=== PATIENT | female | born 1995 | race Two or more races ===

== ENCOUNTER 2020-08-16 22:54 | Emergency (ER) | payer OTHER ==
[~2020-08-16] VITALS: Ht 157.5 cm; Wt 68.0 kg
[2020-08-17 00:59] VITALS: BP 118/85
== END 2020-08-17 01:25 | disposition home or self-care (01) ==
LOC: ER 22:57
DX: S09.90XA Unspecified injury of head, initial encounter (principal); X58.XXXA Exposure to other specified factors, initial encounter; Y93.89 Activity, other specified; Y92.89 Other specified places as the place of occurrence of the external cause; Y99.8 Other external cause status

== ENCOUNTER 2021-06-06 06:55 | Emergency (ER) | payer MEDICAID, OTHER ==
[~2021-06-06] VITALS: Ht 157.5 cm; Wt 71.7 kg
[2021-06-06 09:46] VITALS: BP 124/80
== END 2021-06-06 10:26 | disposition home or self-care (01) ==
LOC: ER 06:55
DX: J02.9 Acute pharyngitis, unspecified (principal); Z88.0 Allergy status to penicillin; Z88.1 Allergy status to other antibiotic agents; Z88.8 Allergy status to other drugs, medicaments and biological substances; Z20.822 Contact with and (suspected) exposure to COVID-19
CPT/HCPCS: 36415; 87426; 87804

== ENCOUNTER 2021-07-06 16:08 | Emergency (ER) | payer MEDICAID ==
[~2021-07-06] VITALS: Ht 157.5 cm; Wt 72.6 kg
[2021-07-06 20:13] VITALS: BP 139/80
[2021-07-06] MEDS ORDERED: METH500T22 PO (21:25)
== END 2021-07-06 21:37 | disposition home or self-care (01) ==
LOC: EDBD 16:08 → ER 16:08
DX: S13.4XXA Sprain of ligaments of cervical spine, initial encounter (principal); S16.1XXA Strain of muscle, fascia and tendon at neck level, initial encounter; R07.89 Other chest pain; R51.9 Headache, unspecified; Z88.1 Allergy status to other antibiotic agents; Z88.0 Allergy status to penicillin; V43.52XA Car driver injured in collision with other type car in traffic accident, initial encounter; Y93.89 Activity, other specified; Y92.89 Other specified places as the place of occurrence of the external cause; Y99.8 Other external cause status
CPT/HCPCS: 71250; 72125; 74176